=== PATIENT | male | born 1995 | race Asian ===

== ENCOUNTER 2017-11-18 02:53 | Emergency (ER) | payer OTHER ==
[~2017-11-18] VITALS: Ht 172.7 cm; Wt 81.0 kg
[2017-11-18 03:06] VITALS: Ht 172.7 cm; Wt 81.0 kg
[2017-11-18 04:24] LABS: CALCIUM 7.7 mg/dl (8.5-10.1); CREATININE 1.31 mg/dl (0.60-1.40)
[2017-11-18] MEDS ORDERED: LORAZEPAM 2 MG/ML 1 ML VIAL IM STA (05:15)
[2017-11-18] MEDS ORDERED: HALOPERIDOL LACTATE 5 MG/ML 1 ML VIAL IM STA (05:15)
--- NOTE | 2017-11-18 07:17 | EMERGENCY ROOM VISIT NOTE ---
ED Visit Note First contact with patient: 07:00 This patient was signed out to me at the end of shift. I have assumed continuing care for the patient from Dr. Blanca Suresh. Patient was reevaluated at the bedside around 10 AM. The patient was clinically sober. The patient was following commands. The patient was deemed suitable for outpatient follow-up and treatment at this time. Patient was given strict follow-up, discharge, and return precautions. All questions were answered. Patient was deemed suitable for outpatient follow-up at this time. Patient agreed with the plan of care and was safely discharged home. ED Course: 1010: I reevaluated the patient. He is awake, alert and oriented x 3. He follows commands. He was given his clothes and discharged home.
--- NOTE | 2017-11-18 08:10 | EMERGENCY ROOM VISIT NOTE ---
History Report prepared by Nancy: Gina Nolasco Under the Supervision of: Dr. Janay Suresh D.O. First contact with patient: 03:02 Chief Complaint: ALCOHOL OVERDOSE Stated Complaint: ALCOHOL OVERDOSE Nursing Triage Summary: Pt brought in by EMS. Pt was found lying on the road on [facility] and reis by police. Pt would not divulge what he was doing tonight. Pt uncooperative. Pt in handcuffs. When handcuffs removed pt attempted to hit staff. Dr Suresh at bedside and orders sedation. Pt blew at 0.26 History of Present Illness The patient is a 21 year old male who presents to the Emergency Room with complaints of an episode of alcohol overdose occurring prior to arrival. Per the police, the patient was found unresponsive in the middle of the street. They report that when they attempted to get him up he became combative with them. The patient states that he is a student and denies having any health problems. HPI and ROS limited secondary to alcohol intoxication. Source of History: patient, police History Limited By: intoxication Onset: prior to arrival Position: other (global) Quality: other (overdose) Timing: other (episode) Note: The police note that the patient was unresponsive. Review of Systems See HPI for pertinent positives & negatives. A total of 10 systems reviewed and were otherwise negative. Past Medical & Surgical Medical Problems: (1) No Known Active Medical Problems Family History No pertinent family history Social History Smoking Status: Unknown if Ever Smoked Alcohol Use: occasionally Marital Status: single Housing Status: lives with roommate Occupation Status: [employer] student Current/Historical Medications Unable to Obtain Active Prescriptions or Reported Meds Physical Exam Vital Signs Date Time Temp Pulse Resp B/P (MAP) Pulse Ox O2 Delivery O2 Flow Rate FiO2 11/18/17 10:00 79 18 122/54 100 Room Air 11/18/17 09:00 84 18 99/51 98 Room Air 11/18/17 08:00 83 18 120/54 97 Room Air 11/18/17 07:00 84 18 152/97 97 Room Air 11/18/17 06:10 93 18 153/83 100 Room Air 11/18/17 04:50 93 18 100/63 98 Room Air 11/18/17 03:40 96 18 143/66 96 Room Air 11/18/17 03:20 98 11/18/17 03:06 139 24 97 Room Air Physical Exam General: Out of control behavior. Screaming expletives. Being restrained by 2 police officers and 2 security guards. HEENT: Head - normocephalic and atraumatic Pupils are 8 mm and sluggishly reactive to light. Extraocular eye muscles are intact, and sclera are moderately injected. Nose - moist nasal mucosa without discharge. Mouth - moist buccal mucosa. Oropharynx is nonerythematous and there is no tonsillar exudate or edema noted. Neck: Supple; no JVD, nuchal rigidity, cervical lymphadenopathy. Heart: Tachycardic rate and regular rhythm. There is a normal S1 and S2 with no murmurs, clicks, or gallops appreciated. Lungs: Clear to auscultation bilaterally with no wheezes, rales, or rhonchi. Abdomen: Soft, completely nontender, nondistended, with good bowel sounds. There are no palpable pulsatile masses or hepatosplenomegaly. There is no guarding, rigidity, or rebound noted. Extremities: No evidence of cyanosis, clubbing, or edema. There are easily palpable peripheral pulses. No obvious signs of trauma. Skin: warm and dry with good turgor and no rashes. Neuro: The patient is moving all 4 extremities without difficulty. He appears to be intoxicated. He will not follow commands. Medical Decision & Procedures Laboratory Results 11/18/17 03:28 Test 11/18/17 03:28 Anion Gap 17.0 mmol/L (3-11) Est Creatinine Clear Calc Drug Dose 86.3 ml/min Estimated GFR () 89.6 Estimated GFR (Non- 77.3 BUN/Creatinine Ratio 13.7 (10-20) Calcium Level 7.7 mg/dl (8.5-10.1) Ethyl Alcohol mg/dL 274.2 mg/dl (0-3) Laboratory results per my review. Medications Administered Medications (Trade) Dose Ordered Sig/Josiah Route Start Time Stop Time Status Last Admin Dose Admin Lorazepam (Ativan Inj) 2 mg NOW STAT IM 11/18/17 05:15 11/18/17 05:16 DC 11/18/17 03:10 2 MG Haloperidol Lactate (Haldol Inj) 10 mg NOW STAT IM 11/18/17 05:15 11/18/17 05:16 DC 11/18/17 03:10 10 MG Procedure 0515: Ordered Ativan Inj 2 mg IM, Haldol Inj 10 mg IM. ED Course 0257: Past medical records reviewed. The patient was evaluated in room B11A. A complete history and physical exam was performed while the patient was being restrained by police and security. The patient had a dorm ferreira in his hand and would not agree to handed over to me. He was quite combative and I felt that having the ferreira between his fingers was a danger to the staff as well as myself. I asked multiple times to give me the ferreira but he was unwilling and stated that he wanted to leave. I asked the security guards and please officers to allow him to sit upright and stop restraining him to give him the opportunity To take his clothes off and put on a hospital gown. During this process, the patient became agitated, combative and tried to jump up from the bed. The patient had to be physically restrained again. He was also unwilling to hand over his ferreira that was in his hand. At that point, a decision was made to chemically restrain the patient the safety of the staff and of the patient. 0300: Ordered Ativan Inj 2 mg IM, Haldol Inj 10 mg IM. 0312: The patient remained combative and struggling with police and security. He was placed in four-point leather restraints. 0330: The patient was no longer struggling was resting comfortably at this time. His vitals were stable. 0345: The patient remains asleep at this time and is hemodynamically stable. 0410: I reevaluated the patient and he is sleeping. He is hemodynamically stable. 0500: Restraints were removed. 0646: I reevaluated the patient and he is sound asleep. Friend is at bedside and I discussed the situation with him. He left his phone number so that he could pick the patient up when he was sober. 0730: The patient was signed out to Dr. Vernon at change of shift. Medical Decision The patient is a 21 year old male who presents to the Emergency Room with complaints of an episode of alcohol overdose occurring prior to arrival. Differential diagnoses include alcohol overdose, drug intoxication, head injury , hypoglycemia. LABS: Alcohol 274 Potassium 3.0 Normal renal function Glucose 109 This is a 21-year-old male patient was found by police unresponsive in the street. Upon approaching him, the patient became startled and combative with police. He admitted to alcohol use. the patient was transported here and evaluated in room be 11 A. The patient required physical and chemical restraint as he would not remain in the bed and was threatening to staff. The patient was monitored closely and was allowed to sober up over some time. He had no outward signs of trauma or indications that he had a head injury. Medication Reconcilliation Current Medication List: was personally reviewed by me Blood Pressure Screening Patient's blood pressure: Elevated blood pressure Blood pressure disposition: Elevated BP felt to be situational Impression Primary Impression: Alcohol overdose Critical Care I have personally spent greater than 60 minutes of critical care time in the direct management of this patient. This includes bedside care, interpretation of diagnostic studies, and testing, discussion with consultants, patient, and family members, and other required patient management activities. This 60 minutes is in excess of all separately billable procedures. Scribe Attestation The scribe's documentation has been prepared under my direction and personally reviewed by me in its entirety. I confirm that the note above accurately reflects all work, treatment, procedures, and medical decision making performed by me. Departure Information Dispostion Still a Patient Prescriptions Unable to Obtain Active Prescriptions or Reported Meds Referrals No Doctor, Assigned (PCP) Forms HOME CARE DOCUMENTATION FORM, IMPORTANT VISIT INFORMATION Patient Instructions [facility] Problem Qualifiers Primary Impression: Alcohol overdose Encounter type: initial encounter Injury intent: accidental or unintentional Qualified Codes: T51.91XA - Toxic effect of unspecified alcohol , accidental (unintentional), initial encounter
[2017-11-18 10:00] VITALS: BP 122/54; PULSE 79; O2SAT 100
== END 2017-11-18 10:30 | disposition home or self-care (01) ==
LOC: EDBD 02:53 → C.EDB 02:59
DX: T51.91XA Toxic effect of unspecified alcohol, accidental (unintentional), initial encounter (principal); Z78.1 Physical restraint status